=== PATIENT | male | born 1955 | race Caucasian/White ===

== ENCOUNTER 2016-04-17 08:25 | Day surgery (SDC) | payer OTHER ==
[~2016-04-17] VITALS: Ht 177.8 cm; Wt 113.2 kg
[2016-04-17] MEDS ORDERED: ASPIRIN 81M81 MG/TA2 PO (08:55)
[2016-04-17] MEDS ORDERED: MOTRIN 200200 MG/TAB PO (08:56)
[2016-04-17 08:58] VITALS: BP 149/89; PULSE 68; TEMP 98.5
[2016-04-17 10:35] VITALS: BP 134/84; PULSE 63
[2016-04-17 10:45] VITALS: BP 112/87; PULSE 75
[2016-04-17 11:00] VITALS: BP 118/79; PULSE 66
[2016-04-17 11:15] VITALS: BP 122/78; PULSE 65
[2016-04-17 13:26] VITALS: BP 121/79; PULSE 68
== END 2016-04-17 11:30 | disposition home or self-care (01) ==
LOC: SDCO 08:25
DX: K64.8 Other hemorrhoids (principal); R19.5 Other fecal abnormalities
CPT/HCPCS: J2250; J3010; J7030

== ENCOUNTER 2016-09-25 08:52 | Day surgery (SDC) | payer OTHER ==
[~2016-09-25] VITALS: Ht 167.6 cm; Wt 116.2 kg
[~2016-09-25 08:52] MED LIST: ASPIRIN 81M81 MG/TA2 PO; MOTRIN 200200 MG/TAB PO
[2016-09-25 09:37] VITALS: BP 141/86; PULSE 64; TEMP 98.6
[2016-09-25] MEDS ORDERED: PRILOSEC 20MG20 MG PO (09:39)
[2016-09-25] MEDS ORDERED: ZANTAC 300300 MG PO (09:41)
[2016-09-25 11:05] VITALS: BP 130/85; PULSE 67; TEMP 97.5
[2016-09-25 11:15] VITALS: BP 139/96; PULSE 68
[2016-09-25 11:30] VITALS: BP 140/95; PULSE 66
[2016-09-25 16:34] VITALS: BP 128/80; PULSE 59
== END 2016-09-25 11:50 | disposition home or self-care (01) ==
LOC: SDCO 08:52
DX: K22.2 Esophageal obstruction (principal); K44.9 Diaphragmatic hernia without obstruction or gangrene; K92.1 Melena; K92.0 Hematemesis; K92.2 Gastrointestinal hemorrhage, unspecified
CPT/HCPCS: J2250; J3010; J7030

== ENCOUNTER → 2016-12-02 | Outpatient (CLI) | payer OTHER ==
[~2016-12-02] MED LIST changes: +PRILOSEC 20MG20 MG PO; +ZANTAC 300300 MG PO
== END ==
LOC: COL.RAD 08:22
DX: M18.11 Unilateral primary osteoarthritis of first carpometacarpal joint, right hand (principal); S63.061A Subluxation of metacarpal (bone), proximal end of right hand, initial encounter

== ENCOUNTER 2017-04-10 18:28 | Emergency (ER) | payer SELFPAY ==
[2017-04-10 18:31] VITALS: TEMP 98.8
[2017-04-10 20:00] VITALS: BP 140/87; PULSE 94
== END 2017-04-10 20:02 | disposition home or self-care (01) ==
LOC: COL.ER 18:28
DX: S61.011A Laceration without foreign body of right thumb without damage to nail, initial encounter (principal); Z23 Encounter for immunization; W26.8XXA Contact with other sharp object(s), not elsewhere classified, initial encounter

== ENCOUNTER 2017-05-28 06:50 | Day surgery (SDC) | payer SELFPAY ==
[~2017-05-28] VITALS: Ht 177.8 cm; Wt 112.0 kg
[2017-05-28] MEDS ORDERED: ASPIRIN 81M81 MG/TA2 PO (07:31)
[2017-05-28] MEDS ORDERED: ALEVE 220MG220 MG PO (07:31)
[2017-05-28] MEDS ORDERED: ALEVE PM PO (07:32)
[2017-05-28 07:43] VITALS: BP 144/90; PULSE 66; TEMP 98.3
[2017-05-28 09:20] VITALS: BP 150/93; PULSE 61; TEMP 97.8
[2017-05-28 09:50] VITALS: BP 130/75; PULSE 57
[2017-05-28 14:53] VITALS: BP 131/84; PULSE 64
== END 2017-05-28 10:00 | disposition home or self-care (01) ==
LOC: SDCO 06:50
DX: K21.0 Gastro-esophageal reflux disease with esophagitis (principal); K44.9 Diaphragmatic hernia without obstruction or gangrene; K22.2 Esophageal obstruction; K92.1 Melena; Z79.82 Long term (current) use of aspirin
CPT/HCPCS: OP; C1726; J2250; J3010; J7030

== ENCOUNTER → 2017-06-08 | Outpatient (CLI) | payer SELFPAY ==
[~2017-06-08] MED LIST changes: +ALEVE 220MG220 MG PO; +ALEVE PM PO
== END ==
LOC: COL.RAD 08:00
DX: K22.2 Esophageal obstruction (principal); K44.9 Diaphragmatic hernia without obstruction or gangrene; K21.9 Gastro-esophageal reflux disease without esophagitis; R11.2 Nausea with vomiting, unspecified
CPT/HCPCS: Q9967

== ENCOUNTER → 2017-06-18 | Outpatient (CLI) | payer OTHER ==
[2017-06-18 10:05] LABS: BASO # 0.1 (0.0-0.2); BASO % 0.6 % (0.0-2.0); EOS # 0.1 (0.0-0.7); EOS % 0.6 % (0-4.0); GRAN # 4.7 (1.4-6.5); GRAN % 60.8 % (42.2-75.2); HEMATOCRIT 48.2 % (42.0-52.0); HEMOGLOBIN 15.7 g/dl (13.5-18.0); LYMPH # 2.4 (1.2-3.4); LYMPH % 30.9 % (20.0-51.0); MEAN CELL VOLUME 90 fl (80.0-100.0); MEAN CORPUSCULAR HEMOGLOBIN 29 pg (27.0-31.0); MEAN CORPUSCULAR HGB CONC 33 g/dl (33.0-37.0); MEAN PLATELET VOLUME 10.3 fl (7.4-10.4); MONO # 0.5 (0.1-0.6); PLATELET COUNT 298 K/mm3 (130-400); RED BLOOD COUNT 5.38 M/mm3 (4.20-5.60); REDCELL DISTRIBUTION WIDTH-CV 13.7 % (11.5-14.5)
[2017-06-18 10:13] LABS: ALBUMIN 4.3 gm/dL (3.5-5.0); BILIRUBIN,TOTAL 0.7 mg/dL (0.0-1.0); CALCIUM 9.1 mg/dL (8.4-10.2); CREATININE, serum 0.84 mg/dL (0.66-1.25); POTASSIUM 4.6 mmol/L (3.4-5.0); TOTAL PROTEIN 7.4 gm/dL (6.4-8.2)
== END ==
LOC: COL.RAD 07:55
PROVIDERS: Surgery
DX: K44.9 Diaphragmatic hernia without obstruction or gangrene (principal); K21.0 Gastro-esophageal reflux disease with esophagitis

== ENCOUNTER 2017-07-07 08:19 | Day surgery (SDC) | payer OTHER ==
[~2017-07-07] VITALS: Ht 177.8 cm; Wt 110.0 kg
[2017-07-07] VITALS (9 sets, daily range): BP systolic 127–141; BP diastolic 76–81; PULSE 74–89; TEMP 98–98.3
[2017-07-08 02:01] VITALS: BP 140/78; PULSE 76; TEMP 98.4
[2017-07-08 06:14] VITALS: BP 122/70; PULSE 76; TEMP 98.8
[2017-07-08 09:00] VITALS: BP 125/69; PULSE 86
[2017-07-08 13:50] VITALS: BP 119/64; PULSE 65; TEMP 98.1
== END 2017-07-08 17:05 | disposition home or self-care (01) ==
LOC: SDCO 08:19 → SURG 08:19 → SDCO 10:30 → SURG 18:00 → SDCO 07-08 17:05
DX: K44.9 Diaphragmatic hernia without obstruction or gangrene (principal); K21.0 Gastro-esophageal reflux disease with esophagitis; Z79.82 Long term (current) use of aspirin
CPT/HCPCS: OP; C1713; C1781; J1100; J1170; J2270; J2370; J2405; J2704; J3010; J7120

== ENCOUNTER → 2018-03-15 | Outpatient (CLI) | payer SELFPAY | LOC: COL.CARD 08:51 | DX: I49.9 Cardiac arrhythmia, unspecified (principal) ==

== ENCOUNTER 2018-11-01 10:06 | Observation (INO) | payer MEDICARE ==
[~2018-11-01] VITALS: Ht 205.7 cm; Wt 118.2 kg
[2018-11-01 10:18] LABS: BASO % 0.5 % (0.0-2.0); EOS % 0.5 % (0-4.0); GRAN # 5.1 (1.4-6.5); HEMATOCRIT 46.3 % (42.0-52.0); LYMPH # 2.5 (1.2-3.4); LYMPH % 30.1 % (20.0-51.0); MEAN CELL VOLUME 91 fl (80.0-100.0); MEAN CORPUSCULAR HEMOGLOBIN 32 pg (27.0-31.0); MEAN CORPUSCULAR HGB CONC 35 g/dl (33.0-37.0); MEAN PLATELET VOLUME 9.9 fl (7.4-10.4); MONO # 0.6 (0.1-0.6); MONO % 6.7 % (1.7-9.3); PLATELET COUNT 247 K/mm3 (130-400); RED BLOOD COUNT 5.07 M/mm3 (4.20-5.60); REDCELL DISTRIBUTION WIDTH-CV 12.4 % (11.5-14.5)
[2018-11-01 10:28] LABS: ALANINE AMINOTRANSFERASE 30 U/L (21-72); ALBUMIN 4.1 gm/dL (3.5-5.0); ALKALINE PHOSPHATASE 97 U/L (50-136); ANION GAP 10 mmol/L (7-16); AST,SGOT 26 U/L (15-37); BILIRUBIN,TOTAL 0.9 mg/dL (0.0-1.0); BLOOD UREA NITROGEN 14 mg/dL (9-20); CALCIUM 9.2 mg/dL (8.4-10.2); CARBON DIOXIDE 24 mmol/L (22-30); CHLORIDE 106 mmol/L (98-107); CREATININE, serum 0.76 (0.66-1.25); GLUCOSE 201 mg/dL (74-106); LIPASE 64 U/L (23-300); POTASSIUM 3.8 mmol/L (3.4-5.0); PROTHROMBIN TIME 11.3 SECONDS (9.7-12.8); SODIUM 140 mmol/L (137-145)
[2018-11-01 10:32] LABS: D-DIMER < 200.00 ng/mLDDu (200-230)
[2018-11-01 10:41] LABS: TROPONIN-I < 0.012 ng/mL (0.000-0.035)
[2018-11-01 12:48] VITALS: BP 137/84; PULSE 64; TEMP 98.7
--- NOTE | 2018-11-01 14:09 | NUR ---
PRINCE met with patient to discuss a discharge plan. The pt lives [place] in [place]. The pt does not use DME and reports independence with ADLs. The pt's PCP is Dr. Johnson and pt receives medications from [facility] pharmacy with no difficulties. The pt does not have advanced directives in the EMR but reports he does have them completed and designate his brothers Aristides and Julio Cesar. The pt plans to go home by taxi upon discharge. The pt also utilized the [employer] bus for transportation. There are no additional needs at this time.
--- NOTE | 2018-11-01 14:36 | NUR ---
Pt up to ROOM 307. Oriented to room, call light. Hospitalist aware of patients arrival. Pt A&O, on room air, independent. RAC INT IV flushes w/ no complications. Pt has cast to RFA, good cap refill, can move extremities. Denies chest pain at this time. Denies dizziness, SOB, N/V. No major concerns at this time. Cardio notified of consult. Med rec, allergies and pharmacy updated. Call light within reach.
[2018-11-01 15:28] VITALS: BP 116/65; PULSE 62; TEMP 98.1
--- NOTE | 2018-11-01 18:15 | NUR ---
Pt refusing last set of troponin labs. This nurse informed hospitalist, gave the ok since last two set of labs were negative. Pt is to have lexiscan in the morning. Pt c/o left side pain under pec rating it /10. describes it as "tingling or like I pulled a muscle", then stated it "might be this patch on my chest pulling at my hair". Pt doesnt appear in distress. No other needs at this time.
[2018-11-01 19:24] VITALS: BP 113/63; PULSE 66; TEMP 98.1
--- NOTE | 2018-11-01 19:41 | NUR ---
Patient assessed at this time. Alert and oriented x 4, and able to make needs known. Denies having pain and discomfort at this time. NS running at 125 ml/hr to peripheral IV to right AC. Site is without redness, warmth, swelling, and pain. Denies SOB, dyspnea, and cough. LS CTA. Respirations even and unlabored. HRR. Denies chest pain and tightness. Telemetry in place. Cap refill < 3 sec. Non-tent skin turgor. BSAx4. Abdomen soft and non-tender. 2+ edema BLE. Cast to right forearm. Denies pain and discomfort to right arm. Cap refill and sensation WNL. Able to wiggle fingers. States that cast will be comming off next wednesday. Voices no questions needs, or concerns at this time. Educated on NPO after midnight, and voices undestanding. Sitting up in bed watching TV at this time. Call light is within reach.
[2018-11-02] VITALS (14 sets, daily range): BP systolic 76–131; BP diastolic 39–71; PULSE 60–95; TEMP 97.7–98.5
--- NOTE | 2018-11-02 00:06 | NUR ---
Patient has been denying having pain and discomfort. Voices no questions, needs, or concerns. Patient is now NPO. Fluid and food removed from bedside. Resting in bed with call light within reach.
--- NOTE | 2018-11-02 05:18 | NUR ---
Patient has been resting in bed with eyes closed most of the night. Did wake up around 0415 and went to the bathroom. Denied having pain and discomfort. NS continues to run at 125 mls/hr to right AC. Voices no questions, needs, or concerns at this time. Sitting up in bed watching TV at this time. Call light is within reach.
--- NOTE | 2018-11-02 08:13 | NUR ---
Pt assessment complete and charted. Pt resting in bed, denies chest pain, dizziness, SOB, N/V. Stated he had a BM "last night/this morning". NS running in RAC w/ no complications. Pt refusing labs this morning, notified SHAREE Spencer, she is ok with it. Pt is allowing the Lexiscan to be completed. No other concerns or complaints at this time.
--- NOTE | 2018-11-02 18:42 | NUR ---
Pt has had uneventful day, denies chest pain. IVF running at 125 ml w/ no complications. denies other needs at this time.
--- NOTE | 2018-11-02 19:20 | NUR ---
Patient assessed at this time. Denies having pain and disocmfort. NS continues to run to peripheral IV to right AC. Site is without redness, warmth, swelling, and pain. Telemetry intact. Reminded that patient will be NPO after midnight for heart cath. Voices no questions, needs, or concerns at this time. Resting in bed watching TV. Call light is within reach.
--- NOTE | 2018-11-02 22:58 | NUR ---
Patient resting in bed with eyes closed at this time. Call light is within reach.
[2018-11-03] VITALS (11 sets, daily range): BP systolic 107–133; BP diastolic 63–80; PULSE 54–67; TEMP 97.1–98.6
--- NOTE | 2018-11-03 05:51 | NUR ---
Patient has denied having pain and discomfort throughout the night. Hesitant to sign consent for heart cath at this time. States that he wants to talk to the doctor first. Reports that he has to leave the hospital today to go home. Unable to tell this nurse why he has to go home today. Resting in bed with call light within reach. Has been NPO except sips of water with medication this morning.
--- NOTE | 2018-11-03 06:32 | NUR ---
Patient refusing to allow labs to be drawn this morning.
--- NOTE | 2018-11-03 09:46 | NUR ---
Pt assessment complete and charted. Morning medications administered per MAY. Pt denies chest pain, dizziness, SOB, N/V. C/O itching/discomfort w/ rt cast. Scheduled to be removed next week. 1/2 NS running in RAC w/ no complications. Pt on room air, independent. No new complaints, wants to eat. Awaiting Dr. Ellis to visit w/ pt to discuss heart cath procedure. No other concerns at this time.
--- NOTE | 2018-11-03 10:21 | NUR ---
pt down for heart cath procedure at this time.
--- NOTE | 2018-11-03 10:31 | NUR ---
ALL MEDICATIONS GIVEN VORB WITH MD. SEE MERGE FOR ALL MEDICATION ADMIN TIMES. SEE MERGE FOR ALL RASS ASSESSMENTS DURING AND AFTER PROCEDURE.
--- NOTE | 2018-11-03 11:30 | NUR ---
Patient transported back to medical bed 307 at this time. Patient's telemetry in place during transport. Patient hooked up to monitoring equipment, VS stable. Visualized right groin with MARGARITA Guillen. Dressing is clean, dry, and intact, no oozing or hematoma present at this time. Site is soft and nontender. Pedal pulses palpable bilaterally. Discussed importance of flat time, head down and leg flat with patient. Bed in locked and lowest position, call light within reach.
--- NOTE | 2018-11-03 11:39 | NUR ---
Pt back from heart cath procedure. VS post ops in progress. Pt A&O. Informed of 4 hr bedrest. Rt femoral site is CDI, no active bleeding, soft to touch.
[2018-11-03] MEDS ORDERED: LIPITOR20 MG PO (12:12)
[2018-11-03] MEDS ORDERED: NITROSTAT0.4 MG/TAB SL (12:13)
[2018-11-03] MEDS ORDERED: TOPROL XL 25MG25 MG PO (12:13)
[2018-11-03] MEDS ORDERED: ZESTRIL2.5 MG PO (12:14)
--- NOTE | 2018-11-03 15:36 | NUR ---
Pt has had his flat time, slept through the first hour and a half. Denies pain, dizziness, SOB, chest pain. Right femoral site is CDI, soft to touch, no hematoma or drainage present. VSS. Pt HOB elevated. Pt being discharged. Discharge instructions discussed and reviewed. RAC IV dc'd with no complications and catheter tip intact. Pt escorted out via WC. All questions answered, no other concerns at this time.
== END 2018-11-03 17:28 | disposition home or self-care (01) ==
LOC: COL.ER 10:06 → MEDICAL 11:34
PROVIDERS: Emergency Medicine; ADMIT Student in an Organized Health Care Education/Training Program
DX: I25.10 Atherosclerotic heart disease of native coronary artery without angina pectoris (principal); K21.9 Gastro-esophageal reflux disease without esophagitis; E66.9 Obesity, unspecified; I11.0 Hypertensive heart disease with heart failure; I50.30 Unspecified diastolic (congestive) heart failure; I08.1 Rheumatic disorders of both mitral and tricuspid valves; R94.39 Abnormal result of other cardiovascular function study; Z79.82 Long term (current) use of aspirin; Z82.49 Family history of ischemic heart disease and other diseases of the circulatory system
CPT/HCPCS: 99222-AI; A9500; C1760; C1894; G0378; J1644; J1650; J2250; J3010; J7030; Q9967

== ENCOUNTER → 2019-01-05 | Outpatient (CLI) | payer MEDICARE ==
[~2019-01-05] MED LIST changes: +LIPITOR20 MG PO; +NITROSTAT0.4 MG/TAB SL; +TOPROL XL 25MG25 MG PO; +ZESTRIL2.5 MG PO
== END ==
LOC: DIA.ED 01-03 15:50
DX: E11.9 Type 2 diabetes mellitus without complications (principal); E78.5 Hyperlipidemia, unspecified
CPT/HCPCS: G0108

== ENCOUNTER 2020-11-16 09:51 | Inpatient (IN) | payer MEDICARE, MEDICAID ==
[2020-11-16] VITALS (45 sets, daily range): BP systolic 100–129; BP diastolic 50–69; PULSE 79–86; TEMP 98.1; O2SAT 95–100
[~2020-11-16] VITALS: Ht 177.8 cm; Wt 110.5 kg
[2020-11-16] MEDS ORDERED: GLUCOPHAGE1000 MG PO ×2 (10:03→10:04)
[2020-11-16 11:06] LABS: HEMATOCRIT 39.3 % (42.0-52.0); HEMOGLOBIN 13.2 g/dl (13.5-18.0); MEAN CELL VOLUME 92 fl (80.0-100.0); MEAN CORPUSCULAR HEMOGLOBIN 31 pg (27.0-31.0); MEAN CORPUSCULAR HGB CONC 34 g/dl (33.0-37.0); MEAN PLATELET VOLUME 11.5 fl (7.4-10.4); PLATELET COUNT 193 K/mm3 (130-400); RED BLOOD COUNT 4.28 M/mm3 (4.20-5.60); REDCELL DISTRIBUTION WIDTH-CV 13.7 % (11.5-14.5)
[2020-11-16 11:17] LABS: ALBUMIN 3.5 gm/dL (3.5-5.0); CALCIUM 8.1 mg/dL (8.4-10.2); CREATININE, serum 7.28 (0.66-1.25); POTASSIUM 4.3 mmol/L (3.4-5.0); TOTAL PROTEIN 6.7 gm/dL (6.4-8.2)
[2020-11-16 11:35] LABS: INR 1.1 (0.8-3.0); PROTHROMBIN TIME 12.4 SECONDS (9.7-12.8)
[2020-11-16 11:37] LABS: PARTIAL THROMBOPLASTIN TIME 27.5 SECONDS (26.0-37.0)
[2020-11-16 11:39] LABS: TROPONIN-I 0.397 ng/mL (0.000-0.035)
[2020-11-16 12:17] LABS: BAND 17 % (0-10); LYMPHOCYTE 7 % (20.0-51.0); NEUTROPHILS 72 % (42.0-75.2); PLATELET ESTIMATE NORMAL (NORMAL)
[2020-11-16 12:18] LABS: BURR CELLS 2+
--- NOTE | 2020-11-16 19:25 | NUR ---
ARRIVES VIA W/C FROM ICU TO ROOM 349. PT IS ALERT AND ORIENTED. HAS NG TO BSD WITH TEA COLORED URINE. ABD DISTENDED. SL TO LEFT HAND.
--- NOTE | 2020-11-16 20:00 | NUR ---
HAND IRRIGATED NG, RETURN OF DARK YELLOW URINE. CONNECTED TO IVF NS AT 150CC/HR TO LEFT HAND. NOTED LEFT ELBOW HEALING ABRASION, RT KNEE/THIGH ABRASION FROM RUG AND RT KNEE WITH ABRASION, RECENT KNEE SURGERY NOTED.
[2020-11-16 21:45] LABS: COLLECTION METHOD CLEAN CATCH
[2020-11-16 22:08] LABS: PH 5 (5-8); SQUAMOUS EPITHELIAL None Seen /hpf; URINE APPEARANCE Cloudy; URINE BACTERIA None Seen /hpf; URINE BILIRUBIN Negative (NEGATIVE); URINE BLOOD 3+ (NEGATIVE); URINE COLOR Amber; URINE GLUCOSE Negative (NEGATIVE); URINE KETONE Negative (NEGATIVE); URINE LEUKOCYTE ESTERASE 2+ (NEGATIVE); URINE NITRATE Negative (NEGATIVE); URINE PROTEIN(semi-quant) 2+ (NEGATIVE); URINE RBC >50 /hpf; URINE UROBILINOGEN Negative (NEGATIVE)
--- NOTE | 2020-11-16 22:32 | NUR ---
MEDICATED WITH MELATONIN 6MG PO AT THIS TIME.
[2020-11-17] VITALS (7 sets, daily range): BP systolic 95–139; BP diastolic 44–65; PULSE 57–77; TEMP 97.4–98.3
--- NOTE | 2020-11-17 06:00 | NUR ---
PT HAS HAD 450CC OF DARK TEA COLORED URINE THIS SHIFT. TAKING SCHEDULED ES TYLENOL FOR DISCOMFORT. BS=88 THIS AM.
--- NOTE | 2020-11-17 06:58 | NUR ---
Bedside shift report complete, report received from MARGARITA Black. Pt. appears to be sleeping in bed. Call light in reach.
[2020-11-17 07:21] LABS: HEMOGLOBIN 11.4 g/dl (13.5-18.0); MEAN CELL VOLUME 92 fl (80.0-100.0); MEAN CORPUSCULAR HEMOGLOBIN 31 pg (27.0-31.0); MEAN CORPUSCULAR HGB CONC 33 g/dl (33.0-37.0); MEAN PLATELET VOLUME 11.7 fl (7.4-10.4); PLATELET COUNT 151 K/mm3 (130-400)
[2020-11-17 07:32] LABS: ALBUMIN 2.7 gm/dL (3.5-5.0); CALCIUM 7.6 mg/dL (8.4-10.2); CREATININE, serum 7.52 (0.66-1.25); TOTAL PROTEIN 5.7 gm/dL (6.4-8.2)
[2020-11-17 07:33] LABS: HEMATOCRIT 34.2 % (42.0-52.0)
[2020-11-17 07:55] LABS: MAGNESIUM 2.1 mg/dL (1.6-2.3)
[2020-11-17 08:11] LABS: BAND 15 % (0-10); LYMPHOCYTE 14 % (20.0-51.0); NEUTROPHILS 63 % (42.0-75.2); PLATELET ESTIMATE NORMAL (NORMAL)
[2020-11-17 08:14] LABS: BURR CELLS 2+
[2020-11-17 08:16] LABS: TROPONIN-I 0.147 ng/mL (0.000-0.035)
--- NOTE | 2020-11-17 08:23 | NUR ---
New critical troponin result available. Troponin has trended down since previous result. SHAREE Spencer notified on telephone, SHAREE Spencer reports cardiology is to see the patient today.
--- NOTE | 2020-11-17 10:07 | NUR ---
Pt. progressing w/ plan of care. Pt. was willing to order breakfast, he wanted to sleep in this AM. Pt. reports intermittent pain to abdomen. Pt. reports the pain is difficult to describe. Pt. also reports belching. Scheduled abx, and AM meds administered per order. Watson cath draining a dark jesus colored urine. Pt. able to make needs known. Pt. grunts and moans at times, this RN asked pt. what was wrong and he reports he is uncomfortable related to the intermittent pain to his abdomen when he feels his bladder is emptying. This RN will contact SHAREE Spencer to inquire about possible interventions. All other needs addressed at this time, call light in reach.
--- NOTE | 2020-11-17 10:28 | NUR ---
Call from lab reporting pt. has positive blood cultures. SHAREE Spencer notified of blood cultures face to face. SHAREE Spencer also notified of pt.'s pain to bladder when bladder is emptied. SHAREE Spencer suggests this RN contacts Urologist Dr. Mcghee to make aware.
--- NOTE | 2020-11-17 11:05 | NUR ---
*Dr. Cruz notified from urology, MD believes this RN is describing is pt. is experiencing bladder spasms. New order obtained for PRN Levsin. This medication was offered to the pt. but he reports he just wants to sleep. Pt. was able to eat a small container of applesauce only for breakfast. Call light in reach.
--- NOTE | 2020-11-17 14:28 | NUR ---
Obi met with the pt who stated his preference to return home once medically stable. The pt lives alone at home. The pt next of kin is his brother, Aristides # [phone] or his mother Lakisha ph [phone]. The pt is independent on all ADLS and uses a walker/cane sometimes. The PCP is Dr. Colud and gets his medications ship to him or sometimes get them from [facility]. The pt was very tired and did not want to finish. No other needs stated at this time. Sw to await further recommendations and follow up as needed. D/c: Home.
--- NOTE | 2020-11-17 15:58 | NUR ---
Pt. continues to progress w/ plan of care. IV abx administered per MAY. Pt. continues to request to not be woken up if possible. Pt. agreeable to allow RN to administer medications and vitals to be obtained. Otherwise pt. requesting to sleep. Pt. denies pain and reports he is comfortable. Call light and belongings in reach.
--- NOTE | 2020-11-17 21:58 | NUR ---
Pt has been ok but sleepy. Bs was only 78, i encouraged to eat some pudding. B is little soft. Will continue to monitor.
[2020-11-18 04:04] VITALS: BP 97/47; PULSE 74; TEMP 98.6
--- NOTE | 2020-11-18 06:38 | NUR ---
Bedside shift report complete with MARGARITA Gibson. Pt. appears to be sleeping w/ eyes closed. Call light in reach, will return to assess pt. this AM.
[2020-11-18 08:00] VITALS: BP 110/54; PULSE 71; TEMP 97.6
--- NOTE | 2020-11-18 09:56 | NUR ---
Pt. experiencing bladder spasms. PRN levsin administered. Team in to round on the patient. Two phlebotomists experienced difficulty getting AM labs. This RN will attempt to get labs. The pt. was able to dangle at the edge of the bed and take a few steps to get further up in the bed. Pt. grunting and moaning at times when bladder spasms occur. Encouragement provided to promote as much as independence as possible. Pt. did not do too well with breakfast, he reports he continues to belch and he reports he is not able to get anything down. Pt. denies nausea. Call light and belongigs in reach.
[2020-11-18 10:43] LABS: HEMOGLOBIN 11.8 g/dl (13.5-18.0); MEAN CELL VOLUME 94 fl (80.0-100.0); MEAN CORPUSCULAR HEMOGLOBIN 31 pg (27.0-31.0); MEAN CORPUSCULAR HGB CONC 33 g/dl (33.0-37.0); MEAN PLATELET VOLUME 11.9 fl (7.4-10.4); PLATELET COUNT 144 K/mm3 (130-400); RED BLOOD COUNT 3.84 M/mm3 (4.20-5.60); REDCELL DISTRIBUTION WIDTH-CV 14.5 % (11.5-14.5)
[2020-11-18 10:52] LABS: ALBUMIN 2.8 gm/dL (3.5-5.0); CALCIUM 7.8 mg/dL (8.4-10.2); CREATININE, serum 7.8 (0.66-1.25); POTASSIUM 4.2 mmol/L (3.4-5.0); TOTAL PROTEIN 5.7 gm/dL (6.4-8.2)
[2020-11-18 11:18] LABS: BAND 4 % (0-10); LYMPHOCYTE 7 % (20.0-51.0); NEUTROPHILS 77 % (42.0-75.2)
[2020-11-18 11:20] LABS: PLATELET ESTIMATE NORMAL (NORMAL)
[2020-11-18 11:21] LABS: BURR CELLS 3+; POIKILOCYTOSIS 3+
[2020-11-18 12:00] VITALS: BP 128/67; PULSE 60; TEMP 97.7
--- NOTE | 2020-11-18 13:27 | NUR ---
Dr. Boston notified of new nephrology consult.
--- NOTE | 2020-11-18 13:41 | NUR ---
New troponin result is trending down but still a critical level. SHAREE Spencer notified and made aware on the telephone.
[2020-11-18 16:00] VITALS: BP 121/65; PULSE 56; TEMP 98
--- NOTE | 2020-11-18 16:49 | NUR ---
SHAREE Spencer notified pt.'s stool + occult blood. New order obtained for H&H to be drawn.
[2020-11-18 17:38] LABS: HEMOGLOBIN 12.1 g/dl (13.5-18.0)
[2020-11-18 19:51] VITALS: BP 116/63; PULSE 68; TEMP 98.2
[2020-11-18 23:22] VITALS: BP 115/57; PULSE 65; TEMP 98.1
--- NOTE | 2020-11-19 00:09 | NUR ---
Pt has been ok. Pt refused to eat. Pain rated 4/10 but refused tylenol. Will continue to monitor.
[2020-11-19 03:15] VITALS: BP 116/53; PULSE 67; TEMP 98.1
[2020-11-19 07:09] LABS: MEAN CELL VOLUME 94 fl (80.0-100.0); MEAN CORPUSCULAR HEMOGLOBIN 31 pg (27.0-31.0); MEAN CORPUSCULAR HGB CONC 33 g/dl (33.0-37.0); PLATELET COUNT 172 K/mm3 (130-400); RED BLOOD COUNT 3.92 M/mm3 (4.20-5.60); REDCELL DISTRIBUTION WIDTH-CV 14.6 % (11.5-14.5)
[2020-11-19 07:12] LABS: HEMATOCRIT 36.9 % (42.0-52.0)
[2020-11-19 07:25] LABS: CREATININE, serum 7.54 (0.66-1.25); POTASSIUM 4.4 mmol/L (3.4-5.0)
[2020-11-19 08:00] VITALS: BP 128/61; PULSE 70; TEMP 97.5
--- NOTE | 2020-11-19 08:00 | NUR ---
PATIENT IS ORIENTED BUT DISPLAYS ANXIOUS AND COMPULSIVE BEHAVIORS. PATIENT TALKING REAL FAST AND IS DIFFICULT TO UNDERSTAND. PATIENT WILL REPEAT HIMSELF AND HAS A HARD TIME LISTENING TO EDUCATION/INSTRUCTION PROVIDED BY STAFF. PATIENT ALSO BECOMES VERY IRRITABLE WHEN THINGS DON'T GO HIS WAY AND DISLIKES A LOT OF QUESTIONS. VSS ON TELE. NO C/O PAIN OR NAUSEA. REFUSES BREAKFAST TRAY. PATIENT ONLY WANTS OJ, GIVEN. LEFT FORARM IV TO INT. AM MEDS GIVEN. HEAD TO TOE ASSESSMENT COMPLETE. NG TO DD WITH MOD AMOUNTS OF BLOOD TINGED URINE NOTED. OCCULT STOOL WAS POSITIVE. BLOOD THINNER ON HOLD. UROLOGY EXPRESSES THE NEED FOR PATIENT TO DISCHARGE HOME WITH NG. PATIENT LIVES ALONE AND ISN'T ABLE TO CARE FOR HIS NG. PATIENT HAS BEEN REQUIRING 2 ASSIST WITH TRANSFERS. PT/OT CONSULTED. PATIENT ADAMANT THAT HE'S GOING HOME UPON DISCHARGE. BUSINESS INTELLIGENCE DEVELOPER INVOLVED IN DISCHARGE PLANNING. HEAD TO TOE ASSESSMENT COMPLETE. CALL LIGHT IN REACH. BED ALARM ON.
[2020-11-19 08:55] LABS: BAND 11 % (0-10); EOSINOPHIL 2 % (0-4); LYMPHOCYTE 8 % (20.0-51.0); METAMYELOCYTE 1 % (0-0); MYELOCYTE 1 % (0-0); NEUTROPHILS 64 % (42.0-75.2); PLATELET ESTIMATE NORMAL (NORMAL)
[2020-11-19 11:13] VITALS: BP 128/72; PULSE 89; TEMP 97.7
--- NOTE | 2020-11-19 11:53 | NUR ---
UA OBTAINED AND SENT TO LAB
--- NOTE | 2020-11-19 13:00 | NUR ---
CALLED GI CONSULT
[2020-11-19 15:37] VITALS: BP 137/63; PULSE 70; TEMP 97.7
--- NOTE | 2020-11-19 16:48 | NUR ---
Met with patient post PT/OT evaluations and discussed their recommendations of going to a short term acute rehab facility. Patient is in agreement that a SNF placement is what he feels " is best for me". face worker discussed facility options with the patient and present the Medicare.gov list for him to review. Patient is strongly against [facility]. Patient verbalizes his first choice would be [facility] in [place] then [facility]. Worker contact Daisha at and Pura at [facility]. Clinical documentation faxed to facilities. Social work will follow. *Discharge Plan: SNF placement*
[2020-11-19 19:39] VITALS: BP 138/67; PULSE 63; TEMP 97.9
--- NOTE | 2020-11-19 22:11 | NUR ---
PATIENT RESTING IN RECLINER. ALERT AND ORIENTED X4. VSS. DENIES PAIN AT THIS TIME. NG CATHETER WITH PINK COLOR URINE. EDUCATION DONE ON BEEN NPO AFTER MIDNIGHT. PATIENT VERBALIZE UNDERSTANDING. PATIENT REPORTS WANT TO SPEND THE NIGHT IN THE RECLINER. CALL LIGHT WITHIN REACH. WILL CONTINUE TO MONITOR.
[2020-11-20] VITALS (7 sets, daily range): BP systolic 113–142; BP diastolic 61–76; PULSE 63–84; TEMP 97.7–98.6
[2020-11-20 08:31] LABS: HEMATOCRIT 37.4 % (42.0-52.0); HEMOGLOBIN 12.3 g/dl (13.5-18.0); MEAN CELL VOLUME 94 fl (80.0-100.0); MEAN CORPUSCULAR HEMOGLOBIN 31 pg (27.0-31.0); MEAN CORPUSCULAR HGB CONC 33 g/dl (33.0-37.0); MEAN PLATELET VOLUME 12.1 fl (7.4-10.4); PLATELET COUNT 194 K/mm3 (130-400); RED BLOOD COUNT 3.96 M/mm3 (4.20-5.60); REDCELL DISTRIBUTION WIDTH-CV 14.4 % (11.5-14.5)
[2020-11-20 08:41] LABS: CALCIUM 8.2 mg/dL (8.4-10.2); CREATININE, serum 6.03 (0.66-1.25); POTASSIUM 4.2 mmol/L (3.4-5.0)
[2020-11-20 09:11] LABS: BAND 3 % (0-10); EOSINOPHIL 2 % (0-4); HYPOCHROMIA 1+; LYMPHOCYTE 6 % (20.0-51.0); METAMYELOCYTE 1 % (0-0); NEUTROPHILS 82 % (42.0-75.2); PLATELET ESTIMATE NORMAL (NORMAL)
[2020-11-20 09:12] LABS: BURR CELLS 2+; POIKILOCYTOSIS 2+
--- NOTE | 2020-11-20 09:29 | NUR ---
Consent for EGD signed.
--- NOTE | 2020-11-20 12:10 | NUR ---
[facility] will accept pt. PT will need covid test and insurance auth. Insurance [employer] in process.
--- NOTE | 2020-11-20 15:33 | NUR ---
Daisha at [facility] stated they could not transport for dialysis if that was in patient's future. Will plan for skilled at [facility] upon discharge. *[facility] skilled*
[2020-11-21] VITALS (11 sets, daily range): BP systolic 121–146; BP diastolic 54–74; PULSE 66–83; TEMP 98.1–99.3
--- NOTE | 2020-11-21 06:18 | NUR ---
PATIENT SPENT THE ALL NIGHT ON THE RECLINER. HAD NO ISSUES. SLEPT THE WHOLE SHIFT. VSS. NG CATHETER WITH TEA COLOR DRAINAGE. TYLENOL AROUND THE CLOCK FOR PAIN WITH GOOD EFFECT. NPO FOR EGD TODAY. CALL LIGHT WITHIN REACH. WILL CONTINUE TO MONITOR.
[2020-11-21 07:09] LABS: HEMATOCRIT 38.6 % (42.0-52.0); HEMOGLOBIN 12.7 g/dl (13.5-18.0); MEAN CELL VOLUME 93 fl (80.0-100.0); MEAN CORPUSCULAR HEMOGLOBIN 31 pg (27.0-31.0); MEAN CORPUSCULAR HGB CONC 33 g/dl (33.0-37.0); MEAN PLATELET VOLUME 11.8 fl (7.4-10.4); PLATELET COUNT 254 K/mm3 (130-400); RED BLOOD COUNT 4.17 M/mm3 (4.20-5.60); REDCELL DISTRIBUTION WIDTH-CV 14.1 % (11.5-14.5)
[2020-11-21 07:16] LABS: CALCIUM 8.1 mg/dL (8.4-10.2); CREATININE, serum 4.12 (0.66-1.25); POTASSIUM 4.3 mmol/L (3.4-5.0)
--- NOTE | 2020-11-21 07:45 | NUR ---
Patient alert and oriented, answers questions appropriately. See assessment. Patient very rude, stating its the "nurses job to stand me up and clean my butt". Patient adamant nurses move him from lying to standing position with no help from him. Patient very loud and beligerent. Encouraged patient to perform own ADLs. Patient refuses education. No c/o at this time.
--- NOTE | 2020-11-21 08:10 | NUR ---
Patient to EGD at 0800 with endo staff.
--- NOTE | 2020-11-21 08:50 | NUR ---
Patient returns from EGD at this time. Assessment unchanged.
--- NOTE | 2020-11-21 10:22 | NUR ---
flow worker contact by Pura at [facility] SNF. Insurance has denied SNF stay with the current documentaion due to not meeting criteria for SNF stay. Patient is refusing to work with PT/OT. Worker going to talk to patient and call patients brother.
--- NOTE | 2020-11-21 13:06 | NUR ---
graphic pre press trades worker contacted by Pura at [facility] SN[facility]. Authorization from patient's insurance has denied SNF care due to not meeting eligibility for SNF. Referral made to [facility] for SNF as well as [facility] for HH. Worker spoke with patient, stressing the need for him to start working with PT/OT if he is wanting a SNF placement. Worker informed the patient that if does not start working with therapy he will have to go home with HH. The patient verbalizes that he wishes to go to [facility] for SNF. Worker again stresses that if these are his wishes he has to work with therapy. Phone call placed to Aristides (brother) informed him of what is going on. Brother will call the patient and try to talk with him.
--- NOTE | 2020-11-21 19:46 | NUR ---
PATIENT RESTING IN BED ON NO APPARENT DISTRESS. ASSESSMENT DONE, COORPERATIVE WITH CARE. NG TO GRAVITY WITH ORANGE COLOR URINE. VSS. CALL WITHIN REACH. WILL CONTINUE TO MONITOR.
[2020-11-22 03:27] VITALS: BP 140/65; PULSE 72; TEMP 97.8
--- NOTE | 2020-11-22 08:00 | NUR ---
Critical WBC called to Johanna Hilario, no new orders at this time
[2020-11-22 08:36] LABS: HEMOGLOBIN 11.8 g/dl (13.5-18.0); MEAN CELL VOLUME 94 fl (80.0-100.0); MEAN CORPUSCULAR HEMOGLOBIN 31 pg (27.0-31.0); MEAN CORPUSCULAR HGB CONC 33 g/dl (33.0-37.0); MEAN PLATELET VOLUME 11.5 fl (7.4-10.4); PLATELET COUNT 267 K/mm3 (130-400); RED BLOOD COUNT 3.81 M/mm3 (4.20-5.60)
[2020-11-22 08:43] LABS: HEMATOCRIT 35.9 % (42.0-52.0)
[2020-11-22 08:46] LABS: CALCIUM 8.1 mg/dL (8.4-10.2); CREATININE, serum 2.33 (0.66-1.25); POTASSIUM 4.1 mmol/L (3.4-5.0)
[2020-11-22 08:58] VITALS: BP 135/68; PULSE 96; TEMP 98.5
[2020-11-22 09:24] LABS: BAND 7 % (0-10); LYMPHOCYTE 6 % (20.0-51.0); NEUTROPHILS 78 % (42.0-75.2); PLATELET ESTIMATE NORMAL (NORMAL)
--- NOTE | 2020-11-22 11:15 | NUR ---
Discussed loose stools with Johanna Garrett, patient GI panel ordered & also spoke with via phone & reviewed patient. Alex has had 2 loose stools requiring full clean up, pericare & soriano cares today. Patient reports he does not know when he needs to go to the bathroom. Patient did ambulte in odell with therapy today & has sat up in chair this am.
[2020-11-22 11:28] VITALS: BP 140/69; PULSE 86; TEMP 97.9
[2020-11-22 15:24] VITALS: BP 142/62; PULSE 72; TEMP 97.9
--- NOTE | 2020-11-22 17:28 | NUR ---
Spoke with supervisor pumping about patient IV in Left foot. Unsure when Iv was started. Agreed it needs removed prior to giving next dose of antibioitc. Spoke with CHRIST Denton who removed IV and started new IV to RAC. Patient tolerated well. Patient understand he will need a GI panel. Unable to obtain at this time, too small amount of stool. Patient only had clear liquids for lunch. Will monitor, patient wanting to try & rest this afternoon.
--- NOTE | 2020-11-22 17:33 | NUR ---
Again tried to obtain GI panel, only a smear of stool, assisted with franck. Patient ordering lunch. Pain managed with tylenol. Denies needs. Will monitor.
--- NOTE | 2020-11-22 18:08 | NUR ---
Patient resting in bed. provided with incontince cares. stool sample to the lab. barrier cream used. brief left open to allow air circulation to groin. Patient tearful, reports he is not able to attend his mother celebration of life this evening. Support provided.
--- NOTE | 2020-11-22 18:43 | NUR ---
PATIENT RESTING IN BED ON CONTACT PRECAUTION, AWAITING RESULT FOR C-DIFF. APPEARED COMFORTABLE. DENIES ANY DISCOMFORT AT THIS TIME. NG CATHETER WITH ORANGE COLOR URINE. CALL LIGHT WITHIN REACH. WILL CONTINUE TO MONITOR.
[2020-11-22 19:46] VITALS: BP 127/62; PULSE 74; TEMP 98.6
[2020-11-22 23:06] VITALS: BP 141/64; PULSE 75; TEMP 98
[2020-11-23 04:01] VITALS: BP 134/63; PULSE 78; TEMP 98
--- NOTE | 2020-11-23 07:58 | NUR ---
Pt. alert and talking to this RN. Pt. reports he is feeling nauseous at this time. Pt. reports pain to abdomen as well. This RN to give pt. PRN zofran and will offer pt. pain medication as well.
[2020-11-23 08:41] VITALS: BP 136/62; PULSE 72; TEMP 99.1
--- NOTE | 2020-11-23 11:58 | NUR ---
Pt. requesting if he can be off tele. Pt. also requesting if he can have something else to treat his red and irritated groin/rash. Dr. Eisenberg notified. New order obtained for PRN Nystatin powder. No change for tele at this moment in time, reports she will look into it.
[2020-11-23 12:00] VITALS: BP 132/67; PULSE 65; TEMP 98.9
[2020-11-23 16:00] VITALS: BP 134/72; PULSE 72; TEMP 98.9
--- NOTE | 2020-11-23 18:17 | NUR ---
Pt. has been encouraged throughout the shift to try to ambulate and cough and deep breathe. Pt. reports he feels unwell and does not want to get OOB. Pt. did not want to eat dinner. This RN encouraged pt. to eat something. Pt. reports he may eat later. Watson cath draining clear orange/yellow urine. Call light and belongings in reach.
[2020-11-23 19:43] VITALS: BP 136/85; PULSE 64; TEMP 98.9
--- NOTE | 2020-11-24 06:37 | NUR ---
Bedside shift report complete. Pt. resting in bed w/ eyes closed. Call light and belongings in reach.
[2020-11-24 07:32] LABS: BASO % 0.2 % (0.0-2.0); EOS # 0.3 (0.0-0.7); EOS % 1.3 % (0-4.0); GRAN # 16.8 (1.4-6.5); GRAN % 86.4 % (42.2-75.2); HEMOGLOBIN 11.6 g/dl (13.5-18.0); LYMPH # 1.3 (1.2-3.4); LYMPH % 6.9 % (20.0-51.0); MEAN CELL VOLUME 97 fl (80.0-100.0); MEAN CORPUSCULAR HEMOGLOBIN 31 pg (27.0-31.0); MEAN CORPUSCULAR HGB CONC 32 g/dl (33.0-37.0); MONO # 0.8 (0.1-0.6); RED BLOOD COUNT 3.76 M/mm3 (4.20-5.60); REDCELL DISTRIBUTION WIDTH-CV 13.7 % (11.5-14.5)
[2020-11-24 07:40] VITALS: BP 138/68; PULSE 65; TEMP 98.6
[2020-11-24 07:41] LABS: HEMATOCRIT 36.4 % (42.0-52.0)
[2020-11-24 07:42] LABS: CALCIUM 8.4 mg/dL (8.4-10.2); CREATININE, serum 1.56 (0.66-1.25); PLATELET COUNT 389 K/mm3 (130-400)
[2020-11-24 12:00] VITALS: BP 124/58; PULSE 83; TEMP 98.4
[2020-11-24 16:00] VITALS: BP 123/73; PULSE 83; TEMP 98.7
--- NOTE | 2020-11-24 18:35 | NUR ---
Pt. had a good day today. He was OOB in the chair most of the day and he was able to ambulate in the hallway. Pt. reports he is feeling better today. Pt. had loose BMs yesterday but it improved today, a very small amount of a loose BM present today. Dr. Mendez made aware on the telephone. Pt. back to bed now, call light and belongings in reach.
--- NOTE | 2020-11-24 19:02 | NUR ---
Bedside shift report complete. Pt. requesting fresh water but denies further needs. Call light and belongings in reach.
[2020-11-24 20:41] VITALS: BP 123/61; PULSE 72; TEMP 98.8
--- NOTE | 2020-11-24 20:50 | NUR ---
Pt. sitting up in bed. Pt. is A&OX3, assessment complete. INT to rt. forearm patent. Pt. reports pain to lower abd. at a 4 on pain scale at this time. Giving Tylenol and levsin at this time. Pt. denies further needs, call light within reach.
[2020-11-25 05:05] VITALS: BP 137/63; PULSE 62; TEMP 981
[2020-11-25 08:00] VITALS: BP 135/59; PULSE 85; TEMP 97.9
--- NOTE | 2020-11-25 09:45 | NUR ---
Patient sitting up in bed. Reports needing changed. Patient incontinent of large loose BM. (immodium, provided) [employer] Captain assisted with shower. Patient agreeable & did well. He tolerated breakfast & is ready to work with therapy today.
[2020-11-25 11:47] LABS: BASO # 0.1 (0.0-0.2); BASO % 0.3 % (0.0-2.0); EOS # 0.2 (0.0-0.7); EOS % 1.3 % (0-4.0); GRAN # 15.3 (1.4-6.5); GRAN % 85.4 % (42.2-75.2); HEMOGLOBIN 11.6 g/dl (13.5-18.0); LYMPH # 1.5 (1.2-3.4); LYMPH % 8.1 % (20.0-51.0); MEAN CELL VOLUME 95 fl (80.0-100.0); MEAN CORPUSCULAR HEMOGLOBIN 31 pg (27.0-31.0); MEAN CORPUSCULAR HGB CONC 33 g/dl (33.0-37.0); MEAN PLATELET VOLUME 10.8 fl (7.4-10.4); MONO # 0.8 (0.1-0.6); MONO % 4.2 % (1.7-9.3); RED BLOOD COUNT 3.74 M/mm3 (4.20-5.60); REDCELL DISTRIBUTION WIDTH-CV 13.5 % (11.5-14.5)
[2020-11-25 11:48] LABS: HEMATOCRIT 35.5 % (42.0-52.0)
[2020-11-25 11:49] LABS: PLATELET COUNT 494 K/mm3 (130-400)
[2020-11-25 11:56] VITALS: BP 131/78; PULSE 79; TEMP 98.4
[2020-11-25 11:58] LABS: CALCIUM 8.6 mg/dL (8.4-10.2); CREATININE, serum 1.37 (0.66-1.25); POTASSIUM 4.3 mmol/L (3.4-5.0)
--- NOTE | 2020-11-25 12:30 | NUR ---
Patient finished lunch & just completed a walk in the halls with therapy using walker & gaitbelt. He tolerated well. He is ready to rest this afternoon.
[2020-11-25 15:29] VITALS: BP 142/66; PULSE 70; TEMP 98.9
--- NOTE | 2020-11-25 18:33 | NUR ---
Patient tolerated dinner. Denies pain. No further incontinent episodes today. Will report off to night nurse
--- NOTE | 2020-11-25 20:00 | NUR ---
PATIENT IS ALERT AND ORIENTED X3 AND HAS SOME SPEECH DELAY. PATIENT HAS IV TO THE RIGHT AC. PATIENT HAS NG WITH CLEAR, YELLOW OUTPUT. PATIENT ON GENERAL DIET. PATIENT AWAITING PLACEMENT FOR DISCHARGE. PATIENT DENIES PAIN OR FURTHER NEEDS AT THIS TIME. CALL LIGHT WITHIN REACH. HEAD TO TOE ASSESSMENT COMPLETE.
[2020-11-25 21:55] VITALS: BP 111/60; PULSE 69; TEMP 99.1
--- NOTE | 2020-11-26 06:21 | NUR ---
PATIENT DID WELL THROUGHOUT NIGHT. SLEPT MOST OF NIGHT. NO FURTHER NEEDS AT THIS TIME. WILL REPORT TO DAY SHIFT.
[2020-11-26 08:00] VITALS: BP 130/62; PULSE 91; TEMP 98.7
--- NOTE | 2020-11-26 08:45 | NUR ---
Patient sitting up in bed. Alert and oriented x 3. Assessment complete. Denies pain at this time. 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 Patient denies needs at this time. Watson to DD with clear yellow urine present. Did ambulate with PT this AM, steady gait with walker.
[2020-11-26 10:21] LABS: BASO # 0.1 (0.0-0.2); BASO % 0.5 % (0.0-2.0); EOS # 0.3 (0.0-0.7); EOS % 1.9 % (0-4.0); GRAN % 79.3 % (42.2-75.2); HEMOGLOBIN 11.6 g/dl (13.5-18.0); LYMPH # 1.9 (1.2-3.4); LYMPH % 11.7 % (20.0-51.0); MEAN CELL VOLUME 95 fl (80.0-100.0); MEAN CORPUSCULAR HEMOGLOBIN 32 pg (27.0-31.0); MEAN CORPUSCULAR HGB CONC 33 g/dl (33.0-37.0); MEAN PLATELET VOLUME 10.6 fl (7.4-10.4); PLATELET COUNT 471 K/mm3 (130-400); RED BLOOD COUNT 3.66 M/mm3 (4.20-5.60); REDCELL DISTRIBUTION WIDTH-CV 13.3 % (11.5-14.5)
[2020-11-26 10:28] LABS: HEMATOCRIT 34.9 % (42.0-52.0)
--- NOTE | 2020-11-26 11:30 | NUR ---
Hospitalist in to see patient.
[2020-11-26] MEDS ORDERED: CIPRO 500MG TA500 MG PO (11:42)
[2020-11-26] MEDS ORDERED: PROTONIX 40MG T40 MG PO (11:45)
[2020-11-26] MEDS ORDERED: PROBIOTIC BLEN1 EACH PO (11:45)
[2020-11-26 11:56] VITALS: BP 121/60; PULSE 69; TEMP 98.6
--- NOTE | 2020-11-26 12:05 | NUR ---
home health care social worker spoke with the patient about going home with home health. Patient understanding of this. Patient's brother Aristides notified. orders faxed to [facility]. *Discharge plan: Home with [facility]*
--- NOTE | 2020-11-26 13:40 | NUR ---
Discharge education provided to patient. Educated on new medications and when to take. Educated on soriano catheter and changing between leg bag and DD bag. All questions answered. Denies needs at this time. Demonstrated back how to empty soriano bags and change bags. Denies additional needs at this time. INT to RAC discontinued, catheter tip intact.
== END 2020-11-26 13:40 | disposition home health service (06) | DRG 853 ==
LOC: COL.ER 09:51 → SURG 12:54 → ICU 12:54 → SURG 19:29
PROVIDERS: Family Medicine; Internal Medicine; Physician Assistant; Urology; ADMIT Internal Medicine
PROC: 0T7 Urinary System, Dilation (ICD-10-PCS; principal; 2020-11-16 13:45)
PROC: 0DB68ZX Excision of Stomach, Via Natural or Artificial Opening Endoscopic, Diagnostic (ICD-10-PCS; 2020-11-21)
DX: A41.59 Other Gram-negative sepsis (principal); I21.4 Non-ST elevation (NSTEMI) myocardial infarction; K25.4 Chronic or unspecified gastric ulcer with hemorrhage; K26.4 Chronic or unspecified duodenal ulcer with hemorrhage; I50.22 Chronic systolic (congestive) heart failure; N13.6 Pyonephrosis; N17.9 Acute kidney failure, unspecified; E87.2 Acidosis; E87.1 Hypo-osmolality and hyponatremia; R65.20 Severe sepsis without septic shock; I11.0 Hypertensive heart disease with heart failure; E66.9 Obesity, unspecified; E78.5 Hyperlipidemia, unspecified; K21.00 Gastro-esophageal reflux disease with esophagitis, without bleeding; E87.8 Other disorders of electrolyte and fluid balance, not elsewhere classified; K44.9 Diaphragmatic hernia without obstruction or gangrene; I25.10 Atherosclerotic heart disease of native coronary artery without angina pectoris; R94.5 Abnormal results of liver function studies; E11.9 Type 2 diabetes mellitus without complications; Z79.82 Long term (current) use of aspirin; Z79.84 Long term (current) use of oral hypoglycemic drugs; Z20.822 Contact with and (suspected) exposure to COVID-19; Z68.34 Body mass index [BMI] 34.0-34.9, adult
CPT/HCPCS: 99223-AI; 99231-AI; 99232-AI; 99233-AI; A9284; C1769; C2617; C9113; J0690; J0692; J0696; J1644; J1815; J2270; J2405; J2543; J2704; J3010; J7030; Q9967

== ENCOUNTER 2021-01-03 13:56 | Day surgery (SDC) | payer MEDICARE, MEDICAID ==
[~2021-01-03] VITALS: Ht 165.1 cm; Wt 102.2 kg
[~2021-01-03 13:56] MED LIST changes: +CIPRO 500MG TA500 MG PO; +GLUCOPHAGE1000 MG PO; +PROBIOTIC BLEN1 EACH PO; +PROTONIX 40MG T40 MG PO
[2021-01-03] MEDS ORDERED: NITROSTAT0.4 MG/TAB SL (14:35)
[2021-01-03] MEDS ORDERED: FLOMAX 0.40.4 MG/CAP PO (14:35)
[2021-01-03] MEDS ORDERED: LIPITOR20 MG PO (14:35)
[2021-01-03] MEDS ORDERED: TOPROL XL 25MG25 MG PO (14:36)
[2021-01-03] MEDS ORDERED: GLUCOPHAGE1000 MG PO (14:36)
[2021-01-03 14:37] VITALS: BP 138/77; PULSE 67; TEMP 98
[2021-01-03 18:00] VITALS: BP 135/73; PULSE 65; TEMP 97.8
[2021-01-03 18:15] VITALS: BP 123/64; PULSE 57
[2021-01-03 18:30] VITALS: BP 132/66; PULSE 59
[2021-01-03 18:45] VITALS: BP 103/55; PULSE 71
--- NOTE | 2021-01-03 18:55 | NUR ---
Reviewed discharge instructions with pt. Pt is eating dinner, no complaints of N/V or of pain. Pt reports that he already has a follow up appointment. Informed pt to notify nursing when he is done eating so that night staff can assist him with getting ready to discharge.
--- NOTE | 2021-01-03 19:30 | NUR ---
Pt tolerated general diet, no N/V, no pain reported, IV in Lt hand dc'd, pt changed into his clothing, transferred self to W/C. alert and oriented, transported to ED exit to meet cab.
== END 2021-01-03 19:30 | disposition home or self-care (01) ==
LOC: SDCO 13:56 → SURG 18:00 → SDCO 19:30
DX: N20.1 Calculus of ureter (principal); N39.0 Urinary tract infection, site not specified; I11.0 Hypertensive heart disease with heart failure; I25.10 Atherosclerotic heart disease of native coronary artery without angina pectoris; E78.5 Hyperlipidemia, unspecified; K21.9 Gastro-esophageal reflux disease without esophagitis; K44.9 Diaphragmatic hernia without obstruction or gangrene; M19.90 Unspecified osteoarthritis, unspecified site; E11.9 Type 2 diabetes mellitus without complications; E66.9 Obesity, unspecified; I50.20 Unspecified systolic (congestive) heart failure; F41.9 Anxiety disorder, unspecified; Z20.822 Contact with and (suspected) exposure to COVID-19; Z79.82 Long term (current) use of aspirin; Z79.899 Other long term (current) drug therapy; Z87.891 Personal history of nicotine dependence
CPT/HCPCS: OP; C1769; J0690; J1100; J2405; J2704; J3010; J7120

== ENCOUNTER → 2021-03-18 | Outpatient (CLI) | payer MEDICARE, MEDICAID ==
[~2021-03-18] MED LIST changes: +FLOMAX 0.40.4 MG/CAP PO
== END ==
LOC: COL.RAD 12:10
DX: D17.9 Benign lipomatous neoplasm, unspecified (principal); R59.0 Localized enlarged lymph nodes

== ENCOUNTER 2023-08-02 05:20 | Day surgery (SDC) | payer MEDICARE, MEDICAID ==
[~2023-08-02] VITALS: Ht 175.3 cm; Wt 120.4 kg
[2023-08-02] VITALS (11 sets, daily range): BP systolic 107–137; BP diastolic 51–91; PULSE 50–73; TEMP 98.1–98.9
[~2023-08-02 05:20] MED LIST changes: +LR 1,000 ML IV SCH
[2023-08-02] MEDS ORDERED: Midazolam 2 MG/2 ML VIAL ONE (06:18)
[2023-08-02] MEDS ORDERED: Tranexamic Acid 1,000 MG/10 ML VIAL ONE (06:21)
[2023-08-02] MEDS ORDERED: Glycopyrrolate 0.2 MG/ML 1 ML VIAL ONE (06:22)
[2023-08-02] MEDS ORDERED: Lidocaine PF 2% (20 MG/ML) 5 ML VIAL ONE (06:22)
[2023-08-02] MEDS ORDERED: NS 10 ML IV ONE (06:22)
[2023-08-02] MEDS ORDERED: dexAMETHasone 10 MG/ML VIAL ONE (06:25)
[2023-08-02] MEDS ORDERED: PRILOTC PO (06:56)
[2023-08-02] MEDS ORDERED: TYLENOL 500MG500 MG PO (06:58)
[2023-08-02] MEDS ORDERED: hydrALAZINE 20 MG/ML 1 ML VIAL IV PRN (07:00)
[2023-08-02] MEDS ORDERED: Ondansetron 4 MG/2 ML VIAL IV PRN (07:00)
[2023-08-02] MEDS ORDERED: fentaNYL 50 MCG/ML 1 ML SYRINGE/VIAL [PACU/SDC ONLY] IV PRN (07:00)
[2023-08-02] MEDS ORDERED: droPERidol 2.5 MG/ML 2 ML VIAL IV PRN (07:00)
[2023-08-02] MEDS ORDERED: HYDROmorphone 1 MG/1 ML SYRINGE [PACU/SDC ONLY] IV PRN (07:00)
[2023-08-02] MEDS ORDERED: Ketorolac 30 MG/ML VIAL IM ONE (07:38)
[2023-08-02] MEDS ORDERED: Thrombin Human (Recombinant) 5,000 UNITS VIAL TP ONE ×2 (07:38)
[2023-08-02] MEDS ORDERED: Morphine 4 MG/ML VIAL SQ ONE (07:38)
[2023-08-02] MEDS ORDERED: NS 10 ML VIAL IJ ONE (07:38)
[2023-08-02] MEDS ORDERED: Magnes Hydrox (MOM) 80 MG/ML 30 ML CUP PO PRN (09:15)
[2023-08-02] MEDS ORDERED: Naloxone 0.4 MG/ML VIAL IV PRN (09:15)
[2023-08-02] MEDS ORDERED: Bisacodyl 5 MG TAB PO PRN (09:15)
[2023-08-02] MEDS ORDERED: Acetaminophen 500 MG TAB PO PRN (09:15)
[2023-08-02] MEDS ORDERED: oxyCODONE 5 MG TAB PO PRN (09:15)
[2023-08-02] MEDS ORDERED: Morphine 4 MG/ML VIAL IV PRN (09:15)
[2023-08-02] MEDS ORDERED: Mag/Al Hydrox/Simeth Susp 30 ML CUP PO PRN (09:15)
[2023-08-02] MEDS ORDERED: NS 1,000 ML IV SCH (09:15)
--- NOTE | 2023-08-02 10:15 | NUR ---
Patient received post op from Teresa. Patient awake and alert. L.knee dressing CDI. Ice to knee and elevated on pillow. IVf as ordered. Scds ble. Vss on room air. Will monitor
[2023-08-02] MEDS ORDERED: Acetaminophen 500 MG TAB PO SCH (13:00)
[2023-08-02] MEDS ORDERED: Ketorolac 15 MG/ML VIAL IV SCH (15:00)
[2023-08-02] MEDS ORDERED: ceFAZolin 2 G in Water For Injection,Sterile 20 ML IV SCH (16:00)
--- NOTE | 2023-08-02 16:25 | NUR ---
Patient continue to do well post op. He has worked with PT\OT. Up to the bathroom and voided without problems. Vss. Tolerating diet. Will monitor
[2023-08-02] MEDS ORDERED: Dextrose 50% Water 25 GM/50 ML SYRINGE IV PRN (16:30)
[2023-08-02] MEDS ORDERED: Dextrose (Glucose) 15 GM (4 x 3.75 GM) Chewable TABLET PACK PO PRN (16:30)
[2023-08-02] MEDS ORDERED: Glucagon 1 MG VIAL IM PRN (16:30)
[2023-08-02] MEDS ORDERED: Insulin Lispro (HumaLOG) SQ SCH (17:00)
--- NOTE | 2023-08-02 18:47 | NUR ---
Patient continues to do well post op. Scheduled pain medication managing pain. Hemovac with minimal output. Int. Will report off to nightnurse
--- NOTE | 2023-08-02 20:22 | NUR ---
report received from rosey hull. pt resting in bed watching tv. pt denies pain. call light in reach. all needs met at this time.
--- NOTE | 2023-08-02 20:37 | NUR ---
shift assessment complete, see documentation. pt denies pain. call light in reach. all needs met at this time.
[2023-08-02] MEDS ORDERED: Atorvastatin 20 MG TAB PO SCH (21:00)
[2023-08-02] MEDS ORDERED: Sennosides/Docusate 8.6-50 MG TAB PO SCH (21:00)
[2023-08-02] MEDS ORDERED: Ascorbic Acid 500 MG TAB PO SCH (21:00)
[2023-08-03 00:12] VITALS: BP 115/70; PULSE 60; TEMP 98.2
[2023-08-03 04:31] VITALS: BP 110/68; PULSE 57; TEMP 98.2
[2023-08-03 06:48] LABS: HEMATOCRIT 42.8 % (42.0-52.0); HEMOGLOBIN 14.7 g/dl (13.5-18.0)
[2023-08-03] MEDS ORDERED: Omeprazole 20 MG **** subs to Pantoprazole 40 MG PO SCH (07:00)
--- NOTE | 2023-08-03 07:01 | NUR ---
awake resting in bed, bedside shift report received from MARGARITA Duff
[2023-08-03 07:16] LABS: CREATININE, serum 1.14 mg/dL (0.72-1.25); POTASSIUM 4.3 mEq/L (3.5-4.5)
[2023-08-03 08:00] VITALS: BP 122/78; PULSE 57; TEMP 98.1
--- NOTE | 2023-08-03 08:00 | NUR ---
resting in bed and has had breakfast, Dr Morillo in and saw patient and D/Cd hemovac drain, assisted up to bathroom and moves with steady gait, ambulated out of bathroom and to recliner, denies needs
--- NOTE | 2023-08-03 08:25 | NUR ---
ambulating in [place] with physical therapy
--- NOTE | 2023-08-03 08:43 | NUR ---
full assessment completed, see interventions for further info, denies pain or needs
[2023-08-03] MEDS ORDERED: ASPIRIN 81M81 MG/TA2 PO (08:52)
[2023-08-03] MEDS ORDERED: ULTRAM 50MG TAB50 MG PO (08:53)
[2023-08-03] MEDS ORDERED: NORCO 325 MG-51 TAB PO (08:53)
[2023-08-03] MEDS ORDERED: CEPHALEXIN500 M1 PO (08:54)
[2023-08-03] MEDS ORDERED: Cephalexin 500 MG CAP PO SCH (09:00)
[2023-08-03] MEDS ORDERED: Magnes Hydrox (MOM) 80 MG/ML 30 ML CUP PO SCH (09:00)
--- NOTE | 2023-08-03 09:23 | NUR ---
D: Initial visit: [employer]er stopped by room on rounds. A: Pt was resting and content in his chair. Pt has no needs right now. 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 Still Cleaner will follow up as needed.
--- NOTE | 2023-08-03 11:20 | NUR ---
resting in chair has ordered lunch, dressing to left knee removed, incision with sen CD&I, aquacel dressing placed
[2023-08-03 11:33] VITALS: BP 119/75; PULSE 60; TEMP 97.9
--- NOTE | 2023-08-03 11:44 | NUR ---
ambulating in [place] with physical therapy, moves with steady gait
--- NOTE | 2023-08-03 13:30 | NUR ---
resting in chair, only c/o mild pain/discomfort medicated with scheduled tylenol
--- NOTE | 2023-08-03 14:15 | NUR ---
therapy in working with patient
--- NOTE | 2023-08-03 15:15 | NUR ---
discharge instructions given to patient, he became very upset when told he was to take aspirin stating he cannot take aspirn, assured him then that he wouldn't have to do that, Dr Morillo notified and Rx for eliquis sent to pharmacy
[2023-08-03] MEDS ORDERED: ELIQUIS 2.5 PO (15:18)
--- NOTE | 2023-08-03 15:26 | NUR ---
discharged per WC
--- NOTE | 2023-08-03 15:45 | NUR ---
location worker met with patient to discuss discharge planning. Patient lives alone in [place]. Aristides, patient's brother, is patient's point of contact, P# [phone]. PCP is Dr. Salamanca, pharmacy is [facility]. No issues affording medications. Patient reports he has a living will appointing his two brothers as his agents for healthcare, Aristides and Julio Cesar and backup agent is his niece, Orly. DME is walker, cane and walking sticks. Patient reports to be independent with ADLS. Patient normally takes public transportation to his appointments but also has a few friends that can transport him if needed. Patient already has outpatient PT established at the [facility] starting on the . Patient would like to return home at time of discharge. Discharge plan: Home with OP PT
[2023-08-06] MEDS ORDERED: Celecoxib 200 MG CAP PO SCH (21:00)
== END 2023-08-03 15:26 | disposition home or self-care (01) ==
LOC: SDCO 05:20 → SURG 09:55 → SDCO 08-03 15:26
PROVIDERS: Physician Assistant
DX: M17.12 Unilateral primary osteoarthritis, left knee (principal); E11.9 Type 2 diabetes mellitus without complications; I25.10 Atherosclerotic heart disease of native coronary artery without angina pectoris; E78.5 Hyperlipidemia, unspecified; I10 Essential (primary) hypertension; G89.18 Other acute postprocedural pain; K21.9 Gastro-esophageal reflux disease without esophagitis; N40.0 Benign prostatic hyperplasia without lower urinary tract symptoms; Z87.891 Personal history of nicotine dependence; Z87.442 Personal history of urinary calculi; Z79.82 Long term (current) use of aspirin; Z79.84 Long term (current) use of oral hypoglycemic drugs; Z79.899 Other long term (current) drug therapy
CPT/HCPCS: OP; A6197; A9284; C1713; C1776; J0665; J0690; J1100; J1580; J1815; J1885; J2250; J2270; J2704; J2795; J7120